=== PATIENT | male | born 1955 | race Caucasian/White ===

== ENCOUNTER 2018-07-01 18:57 | Inpatient (IN) | payer SELFPAY ==
--- NOTE | 2018-07-01 21:12 | HP ---
DATE OF SERVICE: 07/01/2018 CHIEF COMPLAINT: STEMI alert. HISTORY OF PRESENT ILLNESS: Mr. Montemayor is a 59-year-old white gentleman who comes to the hospital aft er 911 called for shortness of breath and chest pain. The call was placed at 1758 hours. EMS arrive d and found him unresponsive in ventricular fibrillation, so CPR was started. He received several sh ocks and he was transferred over here. He actually arrived at 1856 hours, almost 1 hour later as he had several rounds of CPR on the way over with approximately nine different episodes spontaneous retu rn of circulation. While in the ER, he was briefly with a pulse and had to be started on CPR again a bout 3-4 times. Eventually, he became stable by the time we had gotten there. He has been off of an y CPR for about 20 minutes, so we decided to bring him up for further evaluation. He had an emergent catheterization that showed an occluded RCA which was stented successfully. He has residual left ci rcumflex disease in a codominant system. 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 CPR wa s then briefly and one shot of epinephrine actually brought him back up nicely. PAST MEDICAL HISTORY: From chart review: 1. History of lymphoma, unknown which type. 2. Hyperlipidemia. 3. Asthma. PAST SURGICAL HISTORY: None per ER note from 2016. SOCIAL HISTORY: From a note from 2016, he smokes a pack a day. He was current smoker at that time u nknown if he is a smoker at this time. ALLERGIES: No known drug allergies from a note from a year ago. OUTPATIENT MEDICATIONS: Unknown, but on the note from 2006, it said none. REVIEW OF SYSTEMS: Unobtainable as he is intubated. PHYSICAL EXAMINATION: VITAL SIGNS: Temperature 98.2, pulse 110, respiratory rate 20, satting 100% on 50% FiO2. Blood pres sure 122/75. GENERAL: Intubated, nonresponsive. HEENT: Normocephalic. NECK: Supple. LUNGS: Coarse bilateral. CARDIOVASCULAR: S1, S2, tachycardic. A grade 2/6 systolic murmur at right upper sternal border. ABDOMEN: Positive bowel sounds. EXTREMITIES: No edema. SKIN: Warm. LABORATORY WORK: Reviewed. White count of 26, hemoglobin 16, hematocrit 53, platelet count of 158. Coags with an INR of 1.3. ACT is 194. CK-MB initially at 7.1 and troponin 0.10. Glucose was 610. AST and ALT were elevated. Albumin was 3.1. Potassium was 3.4. EKG was reviewed, ST elevation in the inferior leads with reciprocal changes. ASSESSMENT: 1. Acute inferior ST elevation myocardial infarction. 2. Out of hospital ventricular fibrillation arrest with a long resuscitation. 3. Cardiogenic shock, requiring 2 pressors at that time. 4. Tobacco abuse. PLAN: 1. Amiodarone drip. 2. Continue dopamine and epinephrine drip. 3. We will plan on doing a cooling protocol for him. 4. His biggest ilan is going to be neurologic recovery. At this point, he has been coded for a pr olonged period of time and he may have a severe anoxic brain injury. We will assess daily. 5. We will request a Critical Care consultation for help with the ventilator. 6. We will get an ABG. 7. Aggrastat drip until p.o. tolerated. 8. FULL CODE for now until we can talk with family members to see what their wishes are. 9. IV, PPI for stress ulcer prophylaxis. 10. For deep venous thrombosis prophylaxis, he is on full dose IIb/IIIa inhibitors. 11. The patient is severely ill and would not be unexpected. His prognosis is severely guarde d and critical.
[2018-07-02] MEDS ORDERED: EPINEPHrine 1 MG, Admixture Fee 1 EACH in Dextrose 5% in Water 250 ML IVPB SCH (01:30)
[2018-07-02 01:49] LABS: Glucose 718 mg/dL (80-115)
[2018-07-02] MEDS: Amiodarone HCl 450 MG, Admixture Fee 1 EACH in Dextrose 5% in Water 250 ML IVPB SCH ×2 (01:56→12:44)
[2018-07-02] MEDS ORDERED: Aggrastat 12.5 MG/250 ML 250 ML IVPB SCH (02:00)
[2018-07-02 02:35] VITALS: BMI 33.6
[2018-07-02 02:53] LABS: Glucose 719 mg/dL (80-115)
[2018-07-02] MEDS: EPINEPHrine 4 MG, Admixture Fee 1 EACH in Dextrose 5% in Water 250 ML IVPB SCH ×3 (03:08→11:41)
[2018-07-02] MEDS ORDERED: Sodium Chloride 0.9% 1,000 ML IV SCH ×2 (03:45→06:00)
[2018-07-02] MEDS ORDERED: Sodium Chloride 0.9% 2,000 ML IV SCH (03:45)
[2018-07-02] MEDS: DOPamine 400 MG/D5W 250 ML 250 ML IVPB SCH ×4 (04:00→12:40)
[2018-07-02 04:04] LABS: Glucose 745 mg/dL (80-115)
[2018-07-02 04:29] LABS: Hemoglobin 16.8 g/dL (14.0-18.0); Mean Corpuscular HGB CONC 31.7 g/dL (32.0-36.0); Mean Corpuscular Hemoglobin 28.8 pg (27.0-31.0); Mean Corpuscular Volume 90.6 fL (78.0-98.0); Mean Platelet Volume 7.9 fL (7.4-10.4); Platelet Count 258 thou/uL (130-400); RBC Distribution Width 13.4 % (11.5-14.5); Red Blood Cell (RBC) Count 5.84 mill/uL (4.70-6.10); White Blood Cell (WBC) Count 30.8 thou/uL (4.8-10.8)
[2018-07-02 04:41] LABS: ALT (SGPT) 663 U/L (8-55); AST (SGOT) 1139 U/L (5-34); Albumin 2.9 g/dL (3.4-4.8); Alkaline Phosphatase 90 U/L (40-150); Anion Gap 18 mmol/L (10-20); BUN (Urea Nitrogen) 18 mg/dL (8.4-25.7); Bilirubin, Total 0.7 mg/dL (0.2-1.2); Calc. Creatinine Clearance 57 mL/min (70-130); Calcium 7.8 mg/dL (7.8-10.44); Carbon Dioxide 13 mmol/L (23-31); Cardiac Risk 5.1 (Less than 4.5); Chloride 107 mmol/L (98-107); Cholesterol 148 mg/dl (< 200 Desired); Estimated GFR-MDRD 33; Globulin 2.2 g/dL (2.4-3.5); HDL Cholesterol 29 mg/dL (>60 Neg Risk); LDL Cholesterol, Calculated 87 mg/dL; Protein, Total 5.1 g/dL (5.8-8.1); Sodium 136 mmol/L (136-145); Triglycerides 160 mg/dL (Less than 150)
[2018-07-02 04:51] LABS: Glucose 703 mg/dL (80-115); Potassium 2.4 mmol/L (3.5-5.1)
[2018-07-02 05:02] LABS: Band 10 % (5-11); Lymphocytes 7 % (21-51); MDiff Complete? YES; Monocytes 3 % (0-10); Neutrophil 80 % (42-75)
[2018-07-02 05:05] LABS: Troponin I 79.108 ng/mL (< 0.028)
[2018-07-02] MEDS ORDERED: Potassium Chloride 40 MEQ in Premix Bag 1 BAG IVPB SCH (05:15)
[2018-07-02 06:02] LABS: Glucose 679 mg/dL (80-115)
[2018-07-02 06:54] LABS: Glucose 663 mg/dL (80-115)
[2018-07-02 07:11] LABS: Actual Bicarbonate (HCO3a) 13.3 mEq/L (22-28); Base Excess (BEa) -13.3 mEq/L (-2.0 to +3.0); CO2 Tension 33.5 mmHg (35.0-45.0); Carboxyhemoglobin (COHb) 1.4 gm% (0.0-3.0); Hemoglobin (Hb) 17.1 g/dL (14.0-18.0); O2 Tension (PaO2) 93.7 mmHg (> 80.0)
[2018-07-02 07:14] LABS: ALV-art Gradient 434.825 (0-20); Puncture Site ALINE; pH, Arterial 7.22 (7.35-7.45)
[2018-07-02] MEDS ORDERED: EPINEPHrine 1 MG/ML AMP ONE (08:10)
--- NOTE | 2018-07-02 08:53 | PDOC.CTH ---
Cardiology Progress Note - Subjective He remains intubated, no sedation completely unresponsive. - Objective Vital Signs Temp Pulse Resp BP Pulse Ox 07/02/18 07:54 102 H 91/59 L 07/02/18 06:00 30 H 07/02/18 04:00 99.9 F H 30 H 07/02/18 03:29 120 H 07/02/18 02:00 30 H 07/02/18 01:00 107 H 133/75 07/02/18 00:25 38 H 100 Admit Weight 241 lb 2.971 oz Weight 241 lb 2.971 oz 07/01/18 07/02/18 07/03/18 06:59 06:59 06:59 Intake Total 5318 Output Total 515 Balance 4803 - Physical Examination General/Neuro: other: (Intubated non responsive. ) Lungs: unlabored respirations Heart: RRR Abdomen: NT/ND Extremities: + edema B (trace) - Telemetry Telemetry Rhythm: NSR, PVC's, NS VT - Labs Result Diagrams: 07/02/18 04:00 07/02/18 06:25 Troponin/CKMB Troponin I 79.108 ng/mL (< 0.028) H* 07/02/18 04:00 - Assessment/Plan 1. Out of hospital VT arrest. 2. Inferior STEMI 3. RV infarct 4. Cardiogenic shock 5. Severe hypoxic respiratory insufficiency 6. Likely severe anoxic brain injury. 7. Type 2 diabetes. PLAN: - His pupils are unresponsive. - I had a long conversation with his niece Ana Wynn who is his next of kin as he is estranged with both brothers and they have not spoken with him for a long time. She brought her dad last night who is the only one available and she tells me Mr Wynn would have never wanted any of this and they have decided to withdraw care. - Ana tells me they have said their goodbyes last night and they would like to withdraw care now as they believe Mr Quinonez wishes would have been to do so. - Care to be withdrawn.
[2018-07-02 08:56] LABS: Glucose Accucheck Confirmation 631 mg/dl (80-115)
[2018-07-02] MEDS ORDERED: Aspirin 300 MG Suppository PR SCH (09:00)
[2018-07-02 09:09] LABS: CKMB 277.3 ng/mL (0-6.6)
[2018-07-02 10:13] LABS: Actual Bicarbonate (HCO3a) 12.2 mEq/L (22-28); Base Excess (BEa) -14.7 mEq/L (-2.0 to +3.0); CO2 Tension 32.8 mmHg (35.0-45.0); Carboxyhemoglobin (COHb) 1.5 gm% (0.0-3.0); Hemoglobin (Hb) 17.8 g/dL (14.0-18.0)
[2018-07-02 10:16] LABS: Glucose Accucheck Confirmation 608 mg/dl (80-115)
[2018-07-02 10:18] LABS: Puncture Site ALINE; pH, Arterial 7.19 (7.35-7.45)
--- NOTE | 2018-07-02 11:47 | CON ---
DATE OF CONSULTATION: 07/02/2018 Montana Wynn is a 62-year-old male. Currently presented with out of hospital cardiac arrest. He had a prolonged period of resuscitation. I was consulted for ICU assistance. He had chest pain leading up to this apparently and called EMS. There are no medical records availab le regarding this admission in the computer yet. Past medical history, according to old records, remarkable for history of cholecystectomy at [facility]. He had a paracentesis after cholecystectomy. There is a note from 2017 that he had some type of abdominal growth or abnormality that was not addre ssed. During that admission to the ER, he had an abdomen and pelvis CT, which showed diverticulosis and umb ilical hernia, malrotation of the colon, and a right adrenal abnormality, measuring 6.8 cm, which was felt to be a cyst. An MRI was recommended, but it does not appear that this was ever done at [facility] and the [facility]. It is unknown whether he smokes or drinks. There is no family in the room. Family history is unknown. Apparently, family was contacted eventually last night. PHYSICAL EXAMINATION: VITAL SIGNS: His current blood pressure is 100 systolic, heart rate is 120, respiratory rate is 30 p er mechanical ventilation. EYES: Pupils sluggish. NECK: Supple. GENERAL: He is unresponsive. LUNGS: Clear anteriorly. HEART: Regular rhythm, no S3. S1 and S2 are slightly distant. ABDOMEN: Soft and nontender. I do not find any records from the emergency department in the computer. IMPRESSION: 1. Out of hospital arrest. 2. Myocardial infarction. 3. Status post right coronary stenting. 4. High risk for anoxic brain injury. 5. Probable right ventricular infarction, based on his clinical picture. He is hypotensive on high- dose pressors early and responded to 2 liters of saline. He is receiving a third liter now. Blood gas this morning is pending. Metabolic acidosis earlier was partially compensated with an incr ease in ventilatory rate. 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 Critical care time was 30 minutes.
[2018-07-02 12:46] VITALS: BP 80/52
--- NOTE | 2018-07-02 12:58 | EKG ---
Test Reason : STAT Blood Pressure : / mmHG Vent. Rate : 107 BPM Atrial Rate : 107 BPM P-R Int : 120 ms QRS Dur : 100 ms QT Int : 330 ms P-R-T Axes : 048 -35 059 degrees QTc Int : 440 ms Sinus tachycardia with frequent Premature ventricular complexes Left axis deviation ST elevation consider inferior injury or acute infarct ACUTE AK / STEMI Consider right ventricular involvement in acute inferior infarct Abnormal ECG No previous ECGs available Confirmed by WILBUR SKINNER ([id number]) on 07/02/2018 12:57:39 PM Referred By: KATARINA Confirmed By:WILBUR SKINNER
--- NOTE | 2018-07-02 14:05 | CCL ---
CARDIOLOGY PROCEDURE NOTE: Date: 07/01/18 PREPROCEDURE DIAGNOSES: Cardiogenic shock. PROCEDURE diagnosis clinics. Cardiogenic shock. PROCEDURES PERFORMED: Triple lumen femoral venous catheter insertion. SUMMARY: Mr. Montemayor is a 62-year-old gentleman in cardiogenic shock and needing pressors. A triple lumen venous central line was placed emergently. Consents were implied given the emergent nature of the procedure . Local anesthesia was used, and using the modified Seldinger technique, we gained access into the femo ral vein on the right, placed a wire, and then advanced a triple lumen catheter. All ports were flush ed and working well; confirmed position fluoroscopically, and capped and sutured them in place. May use catheter for IV access.
[2018-07-02 14:44] VITALS: TEMP 100.3
[2018-07-02] MEDS ORDERED: Atorvastatin Calcium 40 MG TAB PO SCH (21:00)
--- NOTE | 2018-07-03 22:33 | DIS ---
SUMMARY: Mr. Wynn is a 62-year-old white gentleman who came to the hospital after a cardiac arrest. He called 911 after feeling not well and having chest pains. By the time EMS arrived, he was already in cardiac arrest, unknown how long he was down. However, it appears to be more than 10 minutes. Marilu alvarado received CPR. He was careflighted over as he was in remote location and he received CPR about 1 ho ur from the moment EMS got to him to the moment he was received in the ER. He had returned spontaneo us circulation about 6-[address] over and again 3 or 4 more times here in the ER after he wa s coded several more times. He had an EKG that showed inferior ST elevations and sinus bradycardia. So, cardiology was alerted for STEMI alert. On our arrival, he was intubated, nonresponsive, howeve r, he was stable, maintaining his blood pressure and his pulse, so he was taken emergently to the cat heterization lab. There was no family available at that time to tell us how they would like us to pr oceed as far as his code status or his wishes, so we acted depending on his clinical evaluation and marilu alvarado was taken to the catheterization lab and was found to have an occluded RCA. This was wired, flow w as restored and the drug-eluting stent was placed. Initially we had a different first and last name for the patient as we had problems identifying him. Finally, we were able to identify him as Montana Wynn, Date of after talking to multiple friends and we were able to contact the [facility]. Once the family was contacted and we were able to talk to them, they told us that he is estrange d from his only 2 brothers and have spoken in years and the only closest of kin is a niece who talks to him pretty much every week. She came all the way from [place]. Once he was already in the ICU an d intubated, she voiced her concern that she did not know if this was something that Mr. Wynn would b e interested in being intubated for a prolonged period of time. I voiced my concern about him having severe anoxic brain injury for the prolonged period of time that he had been on CPR. Echocardiogram was done the next morning, which showed a reduced EF and then RV, which was immobile pretty much con sistent with his history of RV infarct. He required 2 pressors to maintain his blood pressure after several conversations with the family, niece who again was the closest to him for many years now vo ed that he would not be interested in any of this and he would just wanted nature to take its course, so she made the decision to withdraw care, which I think was appropriate, given these were most like ly his wishes and care was withdrawn and he soon thereafter. Body was discharged to the [facility]. REASON FOR : 1. Acute inferior posterior ST elevation myocardial infarction. 2. Severe cardiogenic shock. 3. Out of hospital ventricular fibrillation arrest. 4. Anoxic brain injury. 5. Multivessel coronary artery disease. The patient will be discharged to the [facility].
--- NOTE | 2018-07-15 16:17 | EKG ---
Test Reason : Blood Pressure : / mmHG Vent. Rate : 057 BPM Atrial Rate : 054 BPM P-R Int : 000 ms QRS Dur : 106 ms QT Int : 390 ms P-R-T Axes : 000 147 108 degrees QTc Int : 379 ms Junctional rhythm Right axis deviation Incomplete right bundle branch block Possible Right ventricular hypertrophy ST elevation consider inferior injury or acute infarct * ACUTE [place] * Consider right ventricular involvement in acute inferior infarct Abnormal ECG Confirmed by YUSRA SHAFER ([id number]), movie editor OMID RODRIGUEZ ([id number]) on 07/15/2018 4:17:07 PM Referred By: Confirmed By:YUSRA SHAFER
--- NOTE | 2018-07-15 16:17 | EKG ---
Test Reason : Blood Pressure : / mmHG Vent. Rate : 081 BPM Atrial Rate : 082 BPM P-R Int : 000 ms QRS Dur : 106 ms QT Int : 368 ms P-R-T Axes : 000 163 107 degrees QTc Int : 427 ms Atrial fibrillation Right axis deviation Incomplete right bundle branch block Possible Right ventricular hypertrophy ST elevation consider inferior injury or acute infarct * ACUTE [place] * Consider right ventricular involvement in acute inferior infarct Abnormal ECG Confirmed by YUSRA SHAFER ([id number]), web content editor OMID RODRIGUEZ ([id number]) on 07/15/2018 4:17:10 PM Referred By: Confirmed By:YUSRA SHAFER
== END 2018-07-02 17:48 | disposition expired ==
LOC: ERS 18:57 → CCL 19:38 → UNDOADMIN 20:50 → CCU 20:50 → UNDOADMIN 07-02 00:24 → EDSTATUS 07-02 10:11 → UNDODISIN 07-02 17:42 → ERS 07-04 10:11
PROVIDERS: ADMIT Internal Medicine Cardiovascular Disease; ATTEND Internal Medicine Cardiovascular Disease
PROC: 5A12012 Performance of Cardiac Output, Single, Manual (ICD-10-PCS; principal; 2018-07-01)
PROC: 3E033XZ Introduction of Vasopressor into Peripheral Vein, Percutaneous Approach (ICD-10-PCS; 2018-07-01)
PROC: 5A1945Z Respiratory Ventilation, 24-96 Consecutive Hours (ICD-10-PCS; 2018-07-01)
PROC: 0BH17EZ Insertion of Endotracheal Airway into Trachea, Via Natural or Artificial Opening (ICD-10-PCS; 2018-07-01)
PROC: 06HM33Z Insertion of Infusion Device into Right Femoral Vein, Percutaneous Approach (ICD-10-PCS; 2018-07-01)
DX: I21.19 ST elevation (STEMI) myocardial infarction involving other coronary artery of inferior wall (principal); G93.1 Anoxic brain damage, not elsewhere classified; E87.2 Acidosis; I21.29 ST elevation (STEMI) myocardial infarction involving other sites; I49.01 Ventricular fibrillation; R57.0 Cardiogenic shock; F17.210 Nicotine dependence, cigarettes, uncomplicated; E11.9 Type 2 diabetes mellitus without complications; I25.10 Atherosclerotic heart disease of native coronary artery without angina pectoris; J45.909 Unspecified asthma, uncomplicated; E78.5 Hyperlipidemia, unspecified; Z66 Do not resuscitate
CPT/HCPCS: 36416; 80061; 82553; 82805; 82947; 83880; 84443; 84484; 85025; 93005; 93010; 93306; 94003; J0171; J0282; J1265; J1815; J3246; J3480; J7050; J7070